=== PATIENT | female | born 1955 | race Caucasian/White ===

== ENCOUNTER 2016-07-20 19:46 | Emergency (ER) | payer BC, OTHER ==
[~2016-07-20] VITALS: Ht 172.7 cm; Wt 81.7 kg
--- NOTE | ~2016-07-20 | EKG ---
[address] [address] ELECTROCARDIOGRAM REPORT Name: TONY PUTNAM Room #: [facility]#: [id number] Admission: 07/20/16 Attend Phys: Discharge: 07/21/16 Date of : 59 Report #: [id number] THIS REPORT FOR: //name// [facility] ED Test Date: 2016-07-20 Test Time: 19:49:26 Pat Name: TONY PUTNAM Department: Room: Gender: F [employer] Tower Dispatcher: Robyn LANDEROS : 1955 Requested By: Jim Bey Order Number: [id number] MD: Jan Salazar Measurements Intervals [place] Rate: 117 P: 10 [place]: 141 QRS: 19 QRSD: 94 T: 222 QT: 273 QTc: 381 Interpretive Statements Sinus tachycardia Abnormal R-wave progression, late transition Borderline repolarization abnormality Baseline wander in lead(s) II Compared to ECG 03/12/2015 10:25:45 Limb lead reversal no longer present Electronically Signed On 07-23-2016 15:29:05 CDT by Jan Salazar [email or web address] <ELECTRONICALLY SIGNED> By: Jan Salazar MD, [facility] 07/23/16 1529 48 48 Jan Salazar MD, [facility] /EPI
[~2016-07-20 19:46] MED LIST: CARDIZEM CD180 MG PO; CLONIDINE0.1 PO; EFFEXOR XR75 MG PO; HYDROCHLOROTHIA25 M2 PO; PRAVACHOL40 MG PO; XANAX 0.5 MG0.5 M1 PO
[2016-07-20] MEDS ORDERED: RANITIDINE HCL300 MG PO (20:45)
[2016-07-20] MEDS ORDERED: AVAPRO300 MG PO (20:45)
[2016-07-20 20:58] LABS: ABSOLUTE NEUTROPHILS 7.8 thou/uL (1.4-8.2); BASOPHILS 0.7 % (0.0-2.0); EOSINOPHILS 1.4 % (0.0-3.0); HEMOGLOBIN 14.7 gm/dL (12.0-15.0); LYMPHOCYTES 21.7 % (24.0-44.0); MANUAL DIFF NO; MCH 28.6 pg (26.0-34.0); MCHC 33.3 g/dL (28.0-37.0); MONOCYTES 8.2 % (1.0-8.0); PLATELET COUNT 283 thou/uL (150-400); RBC 5.12 mil/uL (4.20-5.00); RDW 14.8 % (10.5-14.5); WBC 11.4 thou/uL (4.0-11.0)
[2016-07-20 21:05] LABS: ANION GAP 12 mmol/L (7-16); BUN 20 mg/dL (7-18); CALCIUM 9.7 mg/dL (8.5-10.1); CHLORIDE 101 mmol/L (98-107); CO2 22 mmol/L (21-32); CREATININE 0.8 mg/dL (0.6-1.0); GLUCOSE 112 mg/dL (74-106); POTASSIUM 3.9 mmol/L (3.5-5.1); SODIUM 135 mmol/L (136-145)
[2016-07-20 21:18] LABS: NT-PRO BRAIN NAT PEPTIDE 6 pg/mL (<300); TROPONIN-I < 0.04 ng/mL (<0.04-0.07)
[2016-07-21 00:11] VITALS: BP 112/68
== END 2016-07-21 00:12 | disposition home or self-care (01) ==
LOC: ER 19:46
PROVIDERS: Nurse Practitioner
DX: R07.9 Chest pain, unspecified (principal); I10 Essential (primary) hypertension; E78.00 Pure hypercholesterolemia, unspecified; K21.9 Gastro-esophageal reflux disease without esophagitis; F32.9 Major depressive disorder, single episode, unspecified; Z90.49 Acquired absence of other specified parts of digestive tract; Z88.5 Allergy status to narcotic agent; Z88.2 Allergy status to sulfonamides